=== PATIENT | male | born 1950 | race Caucasian/White ===

== ENCOUNTER 2016-05-25 12:10 | Emergency (ER) | payer MEDICARE, MEDICAID ==
--- NOTE | 2016-05-25 12:28 | ED Physician Chart ---
Fall HPI - General Stated Complaint: FALL Source: patient, EMS Mode of arrival: EMS Limitations: other - History of Present Illness HPI Narrative: This 65-year-old male was at home when he fell after pivoting and losing his balance. He struck his head on a trashcan and is now complaining of headache and neck Pain. He reports no loss of consciousness, nausea, vomiting or vertigo. MD Complaint: fall Onset (ago): hour(s) (1) Fall From: standing Fall Witnessed: no Place Fall Occurred: home Loss of Consciousness: none Symptoms Prior to Fall: none Context: tripped/slipped Location of injury: head, face, neck Severity: moderate Severity scale (1-10): 4 Quality: dull Associated symptoms (after fall): headache, neck pain (The patient was at home in the bathroom region when he pivoted, lost his balance and fell forward striking his forehead on a cabinet. He denied loss of consciousness, focal weakness, or numbness in his arms or legs.) - Related Data Previous Rx's Medication Instructions Recorded Hydrocodone/Acetaminophen [Holbrook 1 each PO Q6H PRN #0 tablet 05/25/16 7.5-325 Tablet] Ibuprofen 600 mg PO Q6H PRN #0 tablet 05/25/16 Allergies Allergy/AdvReac Type Severity Reaction Status Date / Time Anesthetics - Amide Type Allergy Verified 04/11/16 19:20 Anesthetics - Sunita Type Allergy Verified 04/11/16 19:20 Review of Systems All systems ED: Reviewed and Negative Except as Stated Constitutional: Reports: See HPI Fall PMH - Past Medical History Medical history: Reports: Diabetes (CAD), Hypertension Family Medical History - Family Member Mother History Unknown: Yes Ethnicity: Living Status: Hx Family Cancer: No Hx Family Congestive Heart Failure: No Hx Family Hypertension: No Physical Exam - General Limitations: language barrier General appearance: alert, in no apparent distress - Expanded Head Exam Head exam physicial: Present: hematoma ( Over the right forehead.) - Eye Eye exam: Present: normal appearance, PERRL, EOMI - Expanded Eye Exam Eyelids: Bilateral: Normal inspection Pupils: Bilateral: regular, round Sclera/Conjunctival: bilateral: normal inspection Anterior chamber: bilateral: normal inspection Posterior chamber: bilateral: deferred - ENT ENT exam: normal exam, normal oropharynx, mucous membranes moist, TM's normal bilaterally, normal external ear exam - Expanded ENT Exam Nasal speculum exam: Bilateral: normal Mouth exam: Present: tongue normal Teeth exam: Present: dental caries Throat exam: Present: normal inspection - Neck Neck exam: Present: tenderness ( The patient has diffuse tenderness on palpation of the C-spine. It is more tender in the lower C5/C6 region.) - Expanded Neck Exam Neck exam focused ED: Present: paraspinal tenderness, tenderness (other) - Chest Chest inspection: Present: normal inspection, symmetric chest wall rise - Respiratory Respiratory exam: Present: normal lung sounds bilaterally - Cardiovascular Cardiovascular exam: Present: regular rate, normal rhythm, normal heart sounds - Abdominal Exam Abdominal exam: Present: soft, normal bowel sounds ( At minutes flat and nondistended. Bowel sounds are normally present. Palpation there is no tenderness, rebound or guarding. No organomegaly And no pulsatile masses.) - Rectal Exam Rectal exam: Present: deferred - exam: Present: normal inspection ( No testicular tenderness or masses.) - Extremities Exam Extremities exam: Present: normal inspection, full ROM, normal capillary refill - Expanded Upper Extremity Exam Shoulder exam: Present: normal inspection, full ROM Hand exam: Present: normal inspection, full ROM - Expanded Lower Extremity Exam Hip/Pelvis exam: Present: other ( The patient has no significant deformities in either the upper or the lower extremities. He has full range of motion of all the major joints. Insurance Verification Clerk is normal in both upper extremities. Patient is able to lift both legs off the gurney without pain. Patient is ambulatory with a normal gait.) Knee exam: Present: normal inspection, full ROM Lower leg exam: Present: normal inspection, full ROM Ankle exam: Present: normal inspection, full ROM Neurovascular/Tendon exam: Present: normal capillary refill ( Sensory exam was intact to light touch.) - Back Exam Back exam: Present: normal inspection ( The patient has no significant spinal tenderness on palpation in the thoracic and lumbar regions. No paraspinous muscle spasm.) - Neurological Exam Neurological exam: Present: alert ( Cranial nerves two through 11 were grossly intact.), oriented X3 Course Course Narrative: CASE SUMMARY: this 65-year-old male was at home when he tripped and fell striking his head against the trashcan. There was no loss of consciousness and his called the paramedics. Upon arrival in the emergency department the patient was in full C-spine precautions and on a stiff backboard. He was removed from the backboard but on examination of the C-spine he was found to have tenderness to palpation. see color was reattached and a CT scan of both ahead and the neck was obtained. The CT scan of the head showed no evidence of skull fracture or intracranial hemorrhage. The CT scan of the neck showed no acute fracture or subluxation. Patient had significant degenerative changes in the C-5 six region. The seagull was removed and the patient was ambulated without difficulty. Patient was discharged with a prescription for Motrin 600 mg , number 30 to be taken one every six hours as needed for mild to moderate pain. Patient was also given a prescription of Holbrook 7.5/325, dispensed 12 to be taken one every six hours as needed for moderate to severe pain not controlled by the ibuprofen. He was given the usual precautions regarding mixing it with alcohol and not taking it within six hours of driving. The patient states he does not drive a car. The patient was discharged instructions to return to the emergency department if his symptoms significantly worsened. He was further advised to follow up with his primary care physician in a week or two for a routine recheck. Discharged in stable condition. MDM DDX for Ground Level Mechanical Fall: NOT Acute Long bone open fracture based on physical examination and. NOT C-spine fracture based of CT results. NOT Subdural hematoma, epidural hematoma, or parenchymal lead Based on the CT scan of the head. DISCHARGE DIAGNOSES: MECHANICAL FALL, FOREHEAD CONTUSION, C-SPINE DJD WITH SPRAIN. Disposition Disposition: PT DISCHARGED HOME Condition: Stable Instructions: Fall Prevention and Home Safety, [id number], Contusion, Easy-to -Read Prescriptions: Hydrocodone/Acetaminophen [Holbrook 7.5-325 Tablet] 1 each PO Q6H PRN #0 tablet PRN Reason: Severe Pain Ibuprofen 600 mg PO Q6H PRN #0 tablet PRN Reason: mild pain Referrals: Mario Ramirez [Active] - 1-3 Days ED Discharge Plan - Patient Disposition Admit/Discharge/Transfer: PT DISCHARGED HOME Condition at Disposition: Stable Prescriptions: Hydrocodone/Acetaminophen [Holbrook 7.5-325 Tablet] 1 each PO Q6H PRN #0 tablet PRN Reason: Severe Pain Ibuprofen 600 mg PO Q6H PRN #0 tablet PRN Reason: mild pain Instructions: Fall Prevention and Home Safety, [id number], Contusion, Easy-to -Read Accepting Physician: Mario Ramirez [Active] - 1-3 Days
[2016-05-25 12:37] VITALS: BP 168/99
--- NOTE | 2016-05-25 14:52 | Diagnostic Imaging Report ---
CT scan of the brain without intravenous contrast HISTORY: Pain Total DLP equals 556 CTDI equals 31.3 Axial sections were obtained from the base of the skull to the vertex. There is a prominent ventricular system size along with prominence of cerebral sulci and subarachnoid cisterns reflecting atrophy. No acute parenchymal abnormalities. No intracerebral hemorrhage. No mass effect or shift of midline structures. No extra-axial masses or abnormal fluid collections. Mild mucosal thickening seen within the right maxillary sinus region. IMPRESSION: 1. No acute abnormalities 2. Mild cerebral atrophy 3. Mild mucosal thickening within the right maxillary sinus region
--- NOTE | 2016-05-25 14:53 | Diagnostic Imaging Report ---
CT scan cervical spine HISTORY: Pain Total DLP equals 440 CTDI equals 20.7 Axial sections were obtained through the cervical spine. Additional sagittal and coronal reformatted images are provided. There are degenerative changes with hypertrophic spur formation noted about the endplates of C4 and a greater degree C5 and 6. Narrowing of the C5-6 interspace. Spur formation results in a mild extradural indentation on the anterior spinal canal at C5-6. No acute abnormalities. No fractures. The prevertebral soft tissues appear normal. IMPRESSION: 1. Degenerative changes most pronounced at C5-6 2. No acute abnormalities
== END 2016-05-25 17:00 | disposition home or self-care (01) ==
LOC: ER 12:10
DX: S13.8XXA Sprain of joints and ligaments of other parts of neck, initial encounter (principal); S00.83XA Contusion of other part of head, initial encounter; E11.9 Type 2 diabetes mellitus without complications; I25.10 Atherosclerotic heart disease of native coronary artery without angina pectoris; I10 Essential (primary) hypertension; Z88.4 Allergy status to anesthetic agent; W01.198A Fall on same level from slipping, tripping and stumbling with subsequent striking against other object, initial encounter; Y93.89 Activity, other specified; Y92.012 Bathroom of single-family (private) house as the place of occurrence of the external cause; Y99.8 Other external cause status
CPT/HCPCS: 70450-TC; 72125-TC; 82948-90; Z7502